=== PATIENT | male | born 2000 | race Caucasian/White ===

== ENCOUNTER 2020-04-12 00:43 | Emergency (ER) | payer BC, SELFPAY ==
[2020-04-12 00:44] VITALS: BP 145/85; PULSE 88; RESP 16; TEMP 36; O2SAT 100; BMI 23.8
--- NOTE | 2020-04-12 01:09 | ED.DCSUM_ITS ---
History of Present Illness Chief Complaint: Eye Problem Informant: Patient Location: Right Eye Onset: Hours - several hrs [employer]ESS[employer] Context: Sudden Onset - scratched in eye by his dog Timing: Continuous Current Severity: Severe Maximum Severity: Severe Worsened by: opening eye Relieved by: closing eye Associated Symptoms - Eyes: Photophobia Visual Changes: right: Blurred vision Visual correction: None Narrative: Healthy 19-year-old with scratched in the right eye by his dog. He has had no vision loss due to this. No other injury. Past Medical History - Allergies and Home Meds Allergies/Adverse Reactions: Allergies No Known Allergies Allergy (Verified 04/12/20 00:47) Primary Care Physician: Hari Beckwith MD [Primary Care Provider] - Past Medical History: None Lives: With Family Review of Systems General: Denies: Chills, Fever, Sweats Eyes: Reports: Blurred vision - right, - - Right eye pain and photophobia, tearing. Denies: Diplopia ENT: Denies: Bilateral ear pain, Rhinorrhea, Sore throat Cardiovascular: Denies: Chest pain, Palpitations Respiratory: Denies: Dyspnea, Cough, Dyspnea on exertion Gastrointestinal: Denies: Abdominal pain, Nausea, Vomiting, Diarrhea, Melena, Hematochezia Genitourinary: Denies: Dysuria, Hematuria, Frequency Musculoskeletal: Denies: Back pain, Extremity Pain Skin: Denies: Rash, Wounds Neurological: Denies: Headache, Weakness, Numbness Physical Exam Visual Acuity: right: 20/70, left: 20/30 - OS and OU Visual Acuity: Uncorrected Eyelid: Normal inspection, Right eyelid everted, No foreign body Right Conjunctiva/Sclera: No foreign body, Diffuse focal injection - diffuse injection, - - watery tearing, no exudate Left Conjunctiva/Sclera: Normal inspection, No foreign body Right Cornea: No foreign body, Tetracaine instilled - w/ temporary resolution of pain, able to open eye, Corneal abrasion - central, partial thickness causing small flap Extraocular Motion: Normal exam, No pain, No palsy Pupils: Normal accomodation, PERRL Anterior chamber: Normal exam, Deep and quiet Vital Signs/Narrative: Vital Signs Temp Pulse Resp BP Pulse Ox 04/12/20 00:44 96.8 F L 88 16 145/85 H 100 General: Well nourished, Well developed, - - NAD Head: Normocephalic, Atraumatic ENT: Moist mucous membranes, No rhinorrhea, - - No facial trauma other than the right eye Neck: Supple, Nontender Skin: Normal color, No rash, No Trauma Neurological: Alert, Oriented x3, Cranial nerves II-XII grossly intact, Normal Strength, Normal Sensation, Normal Gait Psychological: Normal affect, Normal Mood Diagnostic/Tx/Re-eval - Treatment and Re-Evaluation Tetracaine: right eye Antibiotic: right eye - Medical Decision Making Evaluation of the eye and visual acuity were not possible prior to giving the patient tetracaine due to blepharospasm and discomfort with opening his eyes/photophobia. Therefore visual acuity was obtained after treating with tetracaine and examining with slit-lamp. There is a national shortage of fluorescein and we have none in the hospital in order to dye the patient's eye. There is obvious central abrasion to the cornea, right over his pupil, likely responsible for his blurred vision and decreased visual acuity. I see no streaming of fluid and the anterior chamber is deep, quiet, intact. He is feeling very well after tetracaine, and I do not think he has a traumatic iritis at this time. Given erythromycin antibiotic ointment for comfort and infection prophylaxis, and advised to follow-up with ophthalmology, referred to the on- call physician. We discussed reasons to return. ED Disposition - Plan for ED Patient: Disposition: Home or Assisted Living Diagnosis: Corneal abrasion, right, Dog scratch Instructions: ED Corneal Abrasion Referrals: Eunice Mendieta MD [STAFF PHYSICIAN] - As soon as possible (call for appt) Additional Instructions: Use antibiotic ointment 3 times daily, small ribbon to inside of lower eyelid. May use more often for discomfort if needed.
[2020-04-12] MEDS: Tetracaine 0.5% Ophthalmic Bottle 3 DRP RIGHT EYE (01:47)
[2020-04-12] MEDS: Erythromycin Base 1 OPTH.TUBE 1 APPLIC RIGHT EYE (01:53)
== END 2020-04-12 01:58 | disposition home or self-care (01) ==
PROVIDERS: Emergency Provider Emergency Medicine; PCP Family Medicine
DX: S05.01XA Injury of conjunctiva and corneal abrasion without foreign body, right eye, initial encounter (principal); W54.1XXA Struck by dog, initial encounter; Y93.9 Activity, unspecified; Y92.9 Unspecified place or not applicable; Y99.9 Unspecified external cause status
CPT/HCPCS: 99283

== ENCOUNTER 2024-09-13 11:43 | Emergency (ER) | payer BC, SELFPAY ==
[2024-09-13 11:44] VITALS: BP 118/77; PULSE 86; RESP 16; TEMP 37; O2SAT 100; BMI 25.9
--- NOTE | 2024-09-13 12:02 | RAD_ITS ---
PROCEDURE: CHEST 1 VIEW (PORTABLE) 09/13/2024 REASON FOR EXAM: Syncopal episode. TECHNIQUE: Frontal view of the chest. COMPARISON: None FINDINGS: Hardware: EKG electrodes are seen. Heart: The heart size is normal. Lungs: The lungs are clear. Bones: The bones are unremarkable. Other: RAD/Chest 1 View (Portable) IMPRESSION: Negative Chest. Reading Location: [facility]-
--- NOTE | 2024-09-13 12:02 | EKG12_ITS ---
Test Reason : Blood Pressure : */* mmHG Vent. Rate : 73 BPM Atrial Rate : 73 BPM P-R Int : 142 ms QRS Dur : 94 ms QT Int : 370 ms P-R-T Axes : 74 68 35 degrees QTcB Int : 407 ms Normal sinus rhythm with sinus arrhythmia Possible Left atrial enlargement Incomplete right bundle branch block Borderline ECG Confirmed by Ubaldo Lopes ([id number]), film editor supervisor CONCHA KUNZ ([id number]) on 09/15/2024 6:58:06 AM Referred By: Yasmany Sauer Confirmed By: Ubaldo Lopes
--- NOTE | 2024-09-13 12:03 | EX.ED.DYSGE1 ---
HPI History of Present Illness Chief Complaint: Syncope Informant: patient and parent Narrative Narrative: 23-year-old male presenting to the emergency room with a chief complaint of syncope. Patient states that he was at a meeting today watching a video when all of a sudden he got tunnel vision sweaty and had a near syncopal/syncopal episode. Dad who was sitting next to him grabbed him states he came to right away. He denies any chest pain palpitations racing heart dyspnea nausea or pain prior to the event. States he had a syncopal episode similar to this but back when he was a sophomore in high school. He states that they took him to the waste water treatment plant operator's office where he ate some sugar. He states he feels back to his baseline. He is not a diabetic. He denies any injuries. [facility] History no medical history Home Medications ?Medication ?Instructions ?Recorded ?Last Taken ?Type NK 04/12/20 Unknown History Allergy/AdvReac Type Severity Reaction Status Date / Time No Known Allergies Allergy Verified 04/12/20 00:47 Family History no significant family his Surgical History no surgical history Social History Smoking Status: Current some day smoker tobacco type: e-cigarettes ROS ROS ED Constitutional Constitutional ED: Denies chills, fever(s) or weight loss Eyes Eyes: Denies change in vision or diplopia ENT ENT ED: Denies ear pain, rhinorrhea or sore throat Cardiovascular Cardiovascular: Reports other Details: Syncope ; Denies chest pain, orthopnea, palpitations or racing heartbeat Respiratory/Chest Respiratory/Chest: Denies cough, dyspnea or orthopnea Gastrointestinal Gastrointestinal: Denies abdominal pain, diarrhea, nausea or vomiting Genitourinary Genitourinary ED: Denies dysuria, hematuria or urinary frequency Musculoskeletal Musculoskeletal: Denies arthralgias, back pain or myalgias Integumentary Denies abscess or rash Neurologic Neurologic: Denies headache(s) or weakness Psychiatric Psychiatric: Denies anxiety, depression, suicidal ideation or suicidal thoughts Endocrine Endocrinology: Denies polydipsia, polyphagia or polyuria Allergic/Immunologic Allergic/Immunologic ED: Denies mouth swelling, tongue swelling or urticaria EXAM Physical Exam Const Vital Signs: 09/13/24 11:44 09/13/24 12:00 Temperature 98.6 F Temperature Source Temporal Pulse Rate 86 Respiratory Rate 16 Respiratory Pattern Normal Blood Pressure 118/77 Blood Pressure Mean 90 Pulse Ox 100 Oxygen Delivery Method Room Air Positive well nourished and well developed General Appearance ED: well developed and NAD HEENT Reports normocephalic, head/scalp atraumatic and moist mucous membranes Eyes PERRL and EOMs intact bilaterally Neck no lymphadenopathy, supple and no JVD Resp normal respiratory effort and clear to auscultation bilaterally Cardio regular rate, regular rhythm and no murmurs GI normal to inspection, nondistended, normoactive bowel sounds and non-tender Palpation: soft Back/Spine no CVA tenderness and normal ROM Extremity normal to inspection General Extremety ED: Negative for edema General Extremity: Negative for edema Neuro oriented x3 and CN's II-XII intact bilaterally Sensorium / Orientation: alert Motor Exam: strength 5/5 throughout Psych mental status grossly normal Mood & Affect: Negative for depressed or tearful Skin no rashes or lesions noted and no wounds Discharge Plan Triage Chief Complaint: Syncope ED Provider: Yasmany Sauer Dx/Rx/DC Orders Prescriptions: No Action NK Primary Care Provider: Hari Beckwith Referrals: Hari Bekcwith MD [Primary Care Provider] - Print Language: Macedonian
[2024-09-13 12:22] LABS: Absolute Lymphocyte Count 1.49 X10^3/uL (0.83-4.51); Absolute Neutrophil Count 6.1 X10^3/uL (2.0-7.7); Basophil# 0.04 X10^3/uL; Basophil% 0.5 % (0-1); Eosinophil# 0.07 X10^3/uL; Eosinophils% 0.8 % (0-5); Hematocrit 45.6 % (40-54); Hemoglobin 16.5 g/dL (13.0-16.5); Lymphocyte # 1.49 X10^3/ul (0.83-4.51); Lymphocyte % 17.7 % (19-41); Mean Corp Hgb Conc 36.2 g/dL (32-36); Mean Corpuscular Hgb 32.6 pg (27.0-32.0); Mean Corpuscular Volume 90.1 fL (80-94); Mean Platelet Vol. 10.3 fl (6.2-12.0); Monocyte# 0.64 X10^3/uL; Monocyte% 7.6 % (0-10); NRBC Flagged by Analyzer 0 % (0-5); Neutrophil # 6.09 X10^3/uL (2.7-7.7); Neutrophil % 72.2 % (47-70); Platelet Count 263 K/mm3 (150-450); RBC Distribution Width CV 12.1 % (11.6-14.6); RBC Distribution Width SD 39.7 fl (35.1-43.9); Red Blood Count 5.06 M/mm3 (4.6-6.2); White Blood Count 8.4 K/mm3 (4.4-11.0)
[2024-09-13 12:43] VITALS: BP 114/61; PULSE 72; RESP 16
[2024-09-13 13:00] VITALS: BP 114/61; PULSE 72
[2024-09-13 13:01] LABS: ALB/GLOB Ratio 2.1 RATIO (0.9-2.4); AST(SGOT) 28 U/L (<=37); Alanine Aminotransfer ALT/SGPT 28 U/L (<=46); Alkaline Phosphatase 74 U/L (40-129); Anion Gap 13 (5-15); BUN 31 mg/dL (4-19); BUN/Creat Ratio 28.6 RATIO (10-20); Calcium,Total 9.9 mg/dL (7.6-11.0); Carbon Dioxide 26.5 mmol/L (21.0-32.0); Chloride 99 mmol/L (98-108); Creatinine, Serum 1.07 mg/dL (0.70-1.20); EST Glomerular Filtration Rate 100 (>60); Estimated Creatinine Clearance 103.88 ml/min (50-250); Globulin 2.4 g/dL (2.2-4.2); Glucose 111 mg/dL (70-99); Potassium 3.7 mmol/L (3.3-5.1); Protein, Total 7.3 g/dL (5.9-8.4); Sodium Level 139 mmol/L (133-145); Total Bilirubin 0.53 mg/dL (0.00-1.30)
[2024-09-13 13:13] LABS: Troponin T High Sensitivity < 6 ng/L (<=22)
[2024-09-13 13:28] VITALS: BP 125/74; PULSE 80; RESP 16; TEMP 36.9; O2SAT 97
== END 2024-09-13 13:28 | disposition home or self-care (01) ==
PROVIDERS: Emergency Provider Emergency Medicine; Referring Provider Emergency Medicine; Visit Provider Emergency Medicine
DX: R55 Syncope and collapse (principal); F17.290 Nicotine dependence, other tobacco product, uncomplicated
CPT/HCPCS: 71045; 80053; 84484; 85025; 93005; 99284